=== PATIENT | male | born 1955 | race Caucasian/White ===

== ENCOUNTER 2021-08-31 09:01 | Outpatient (REF) | payer OTHER, SELFPAY ==
[2021-08-31 10:45] LABS: Alanine Aminotransferase 33 U/L (0-40); Albumin Level 4.4 g/dL (3.5-5.0); Alkaline Phosphatase 89 U/L (39-117); Anion Gap 12 (12-20); Aspartate Amino Transferase 28 U/L (5-37); Bilirubin Total 0.9 mg/dL (0.0-1.0); Blood Urea Nitrogen 17 mg/dL (9-16); Calcium 9.1 mg/dL (8.4-10.2); Carbon Dioxide 29 mmol/L (22-29); Chloride 104 mmol/L (96-108); Cholesterol 152 mg/dL; Estimated Glomerular Filt Rate > 60; Glucose Fasting 95 mg/dL (60-99); HDL Cholesterol 35 mg/dL; LDL Cholesterol Calculated 98 mg/dl; Potassium 4.8 mmol/L (3.3-5.1); Sodium 140 mmol/L (135-145); Triglycerides 98 mg/dL
[2021-09-07 14:16] LABS: Vitamin D 25-OH, D2 <4 ng/mL; Vitamin D 25-OH, D3 25 ng/mL; Vitamin D 25-OH, Total 25 ng/mL (30-100)
== END 2021-08-31 09:02 | disposition home or self-care (01) ==
LOC: HO.LAB 09:01
PROVIDERS: Visit Provider Internal Medicine
DX: E55.9 Vitamin D deficiency, unspecified (principal); E78.5 Hyperlipidemia, unspecified; I10 Essential (primary) hypertension
CPT/HCPCS: 36415; 80053; 80061; 82306

== ENCOUNTER 2022-10-23 14:59 | Outpatient (REF) | payer MEDICARE, MEDICAID, SELFPAY ==
[2022-10-23 15:44] LABS: COVID-19 Test Negative (Negative); IDNOW Serial# 16C4AD1C
== END 2022-10-23 15:00 | disposition home or self-care (01) ==
LOC: HO.LAB 14:59
PROVIDERS: Visit Provider Internal Medicine
DX: Z20.822 Contact with and (suspected) exposure to COVID-19 (principal)
CPT/HCPCS: 87635; C9803

== ENCOUNTER 2023-02-12 04:54 | Emergency (ER) | payer MEDICARE, MEDICAID, SELFPAY ==
--- NOTE | ~2023-02-12 | CT_ITS ---
EXAMINATION: CT ABDOMEN AND PELVIS WITHOUT CONTRAST CLINICAL INFORMATION: Question right spigelian hernia COMPARISON: None available. TECHNIQUE: Multidetector volumetric imaging was performed from the superior aspect of the liver through the pubic symphysis. Sagittal and coronal reformatted images were obtained on the technologist's workstation. This CT examination was performed using dose optimization techniques as appropriate, variously including the following: *Automated exposure control *Adjustment of mA and/or kV according to patient size (this includes techniques or standardized protocols for targeted exams where dose is matched to indication/reason for exam; i.e. extremities or head) *Use of iterative reconstruction technique DLP: 718 mGy-cm FINDINGS: LUNG BASES: Mild dependent opacities bilaterally more suggestive of atelectasis. LIVER, GALLBLADDER, AND BILIARY TREE: The liver is normal in size, shape, and attenuation. No focal hepatic lesion or biliary ductal dilatation is identified. The gallbladder is unremarkable with no evidence of radiopaque gallstones, gallbladder wall thickening, or obvious pericholecystic inflammatory changes. PANCREAS: Unremarkable. SPLEEN: Unremarkable. ADRENAL GLANDS: Unremarkable. KIDNEYS AND URETERS: No hydronephrosis or obstructing calculus bilaterally. Few bilateral renal cysts are noted measuring up to approximately 4.2 cm upper left kidney; no follow-up recommended. There is limited evaluation of the renal parenchyma without intravenous contrast. There is a questionable partially exophytic lesion in the lower right kidney such as on coronal image 73 laterally; further workup with renal ultrasound is recommended. BLADDER: Unremarkable. GASTROINTESTINAL TRACT: No evidence of bowel obstruction or significant wall thickening. The appendix is unremarkable. No free fluid or free air is seen. ABDOMINAL WALL: No significant hernia is appreciated. LYMPH NODES: Normal. VASCULAR: Scattered atherosclerotic calcifications. PELVIC VISCERA: Unremarkable. OSSEOUS STRUCTURES: Degenerative changes are noted in the spine. CT/CT abdomen pelvis wo IV con IMPRESSION: 1. No evidence of spigelian hernia. 2. Questionable partially exophytic lesion in the lower right kidney, for which further workup with renal ultrasound is recommended.
[2023-02-12 05:03] VITALS: BP 160/92; BP 164/89; PULSE 84; PULSE 91; RESP 16; TEMP 37; O2SAT 97; BMI 34.2
--- NOTE | 2023-02-12 05:04 | MHC.EDTECH ---
Patient reports Abdomainal pain Vitals are stable Alert and oriented Frisian speaking
[2023-02-12 05:07] VITALS: BP 164/89; PULSE 91; RESP 16; TEMP 37; O2SAT 98
--- NOTE | 2023-02-12 05:08 | PC.NURSE ---
pt change of over into hospital attire, pt reports abd pain, labs ordered, Will continue to monitor.
--- NOTE | 2023-02-12 05:08 | ED.ABDPAIN ---
HPI - Abdominal Pain General Chief Complaint: Abdominal Pain Stated Complaint: RLQ PAIN ON/OFF PER EMS Time Seen by Provider: 02/12/23 05:08 Source: patient Mode of arrival: ambulatory Limitations: no limitations History of Present Illness HPI narrative: Patient obese patient with history of laparotomy for perforated bowel was bending down and cutting his toenails today noticed pain in the right abdominal wall no nausea no vomiting no diarrhea by the time patient came here pain improved no history of hernia in the past Related Data Home Medications Medication Instructions Recorded Confirmed acetaminophen 650 mg 1 tab PO TID 09/12/20 12/27/22 tablet,extended release (Mapap Arthritis Pain) meclizine 25 mg tablet 1 tab PO DAILY PRN vertigo 09/12/20 12/27/22 aspirin 81 mg tablet,delayed 81 mg PO DAILY 09/19/20 12/27/22 release Previous Rx's Medication Instructions Recorded atorvastatin 80 mg tablet 80 mg PO BEDTIME 90 days #90 tabs 10/15/22 lisinopril 30 mg tablet 30 mg PO DAILY #90 tabs 10/15/22 atenolol 25 mg tablet 25 mg PO DAILY #90 tabs 02/08/23 ibuprofen 600 mg tablet 600 mg PO Q6H PRN fever or pain 02/12/23 #30 tabs Allergies Allergy/AdvReac Type Severity Reaction Status Date / Time No Known Allergies Allergy Verified 12/27/22 15:41 Review of Systems Review of Systems Yes all other systems are reviewed and are negative [facility] Past Medical History Medical History Class 1 obesity with body mass index (BMI) of 33.0 to 33.9 in adult Essential hypertension HTN (hypertension) Pulmonary embolism Pure hypercholesterolemia Vertigo Vertigo Surgical History Fistula History of prostatectomy Family History Family History Father No problems noted. Mother No problems noted. Social History Social History Housing: Apartment Alcohol intake: never Patient Tobacco Use Status: Never used Tobacco Smoked in Last 30 Days: No e-Cigarette/Vaping Use: Never Used Second Hand Smoke Exposure: No Use of substances other than those prescribed or required for medical reasons: No Advance Directives: No Advance Directives Information Provided: Yes service: No Current occupational status: disabled Cognitive needs: Yes Hearing needs: No Vision needs: Yes Physical Exam ED Vital Signs: Vital Signs - 24 hr 02/12/23 05:03 02/12/23 05:07 02/12/23 06:16 Temperature 98.6 F 98.6 F 98.2 F Pulse Rate 91 91 74 Respiratory Rate 16 16 17 Blood Pressure 164/89 H 164/89 H 132/67 Pulse Oximetry 97 98 94 Oxygen Delivery Method Room Air Room Air BMI result Body Mass Index 34.2 Appearance: Alert. Oriented X3. No acute distress. Eyes: No pallor in ENT: Pharynx normal. Oral Mucosa moist Neck: Normal inspection. Neck supple. CVS: Normal heart rate and rhythm. Pulses normal. Respiratory: No respiratory distress. Equal air entry bilateral, no wheezing/rales/rhonchi Abdomen: Soft slight tenderness right mid abdominal wall which increases on raising the leg without any lump palpable, Bowel sounds are present, no mass palpable, no CVA tenderness Skin: Skin warm and dry. Normal skin color. Normal skin turgor. Extremities: No lower extremity edema. No calf tenderness Neuro: Oriented X 3. No motor deficit. Medical Decision Making Medical Decision Making [facility] Narrative: Patient likely muscular strain of the abdominal wall CT scan negative for any hernia no palpable masses felt patient feeling much better at this time will discharge patient home Lab Data [facility] Lab Attestation statement: I reviewed the patient's lab results. 02/12/23 05:19 02/12/23 05:19 Labs: Lab Results 02/12/23 02/12/23 Range/Units 05:19 05:19 WBC 6.2 (4.8-10.8) X10*3/uL RBC 5.28 (4.60-5.80) X10*6/uL Hgb 14.0 (14.0-18.0) g/dl Hct 44.6 (42.0-52.0) % MCV 84.5 (80.0-98.0) fL MCH 26.5 L (27.0-33.0) pg MCHC 31.4 (31.0-36.0) g/dl RDW 14.1 (11.0-16.0) % Plt Count 235 (160-400) X10*3/uL MPV 9.6 (9.4-12.4) fL Absolute Nucleated RBC 0.000 (0.0-0.012) X10*3/uL Nucleated RBC % (auto) 0.0 (0.0-0.2) /100WBC Sodium 139 (135-145) mmol/L Potassium 4.7 (3.3-5.1) mmol/L Chloride 106 (96-108) mmol/L Carbon Dioxide 22 (22-29) mmol/L Anion Gap 16 (12-20) BUN 25 H (9-16) mg/dL Creatinine 1.20 (0.5-1.4) mg/dL Estim Creat Clear Calc 63.9 Estimated GFR > 60 Random Glucose 126 H (60-115) mg/dL Calcium 8.9 (8.4-10.2) mg/dL Total Bilirubin 0.9 (0.0-1.0) mg/dL AST 25 (5-37) U/L ALT 30 (0-40) U/L Alkaline Phosphatase 105 (39-117) U/L Total Protein 7.5 (6.5-8.0) g/dL Albumin 4.3 (3.5-5.0) g/dL Lipase 24 (8-78) U/L Discharge Plan Discharge Clinical Impression: Strain of abdominal muscle Patient Disposition: Home, Self-Care Instructions: Muscle Strain (DC) Additional Instructions: Apply ice pack, Motrin for the pain No hernia seen in the CT scan Follow your PCP if pain continues Prescriptions: New ibuprofen 600 mg tablet 600 mg PO Q6H PRN (Reason: fever or pain) Qty: 30 0RF No Action lisinopril 30 mg tablet 30 mg PO DAILY Qty: 90 1RF atorvastatin 80 mg tablet 80 mg PO BEDTIME 90 Days Qty: 90 1RF atenolol 25 mg tablet 25 mg PO DAILY Qty: 90 1RF acetaminophen [Mapap Arthritis Pain] 650 mg tablet extended release 1 tab PO TID meclizine 25 mg tablet 1 tab PO DAILY PRN (Reason: vertigo) aspirin 81 mg tablet,delayed release (DR/EC) 81 mg PO DAILY Print Language: Moroccan
[2023-02-12 05:23] LABS: Hematocrit 44.6 % (42.0-52.0); Mean Corpuscular HGB Conc 31.4 g/dl (31.0-36.0); Mean Corpuscular Hemoglobin 26.5 pg (27.0-33.0); Mean Corpuscular Volume 84.5 fL (80.0-98.0); Mean Platelet Volume 9.6 fL (9.4-12.4); Platelet Count 235 X10*3/uL (160-400); Red Blood Count 5.28 X10*6/uL (4.60-5.80); Red Cell Distribution Width 14.1 % (11.0-16.0); White Blood Count 6.2 X10*3/uL (4.8-10.8)
[2023-02-12 05:43] LABS: Alanine Aminotransferase 30 U/L (0-40); Albumin Level 4.3 g/dL (3.5-5.0); Alkaline Phosphatase 105 U/L (39-117); Anion Gap 16 (12-20); Aspartate Amino Transferase 25 U/L (5-37); Bilirubin Total 0.9 mg/dL (0.0-1.0); Blood Urea Nitrogen 25 mg/dL (9-16); Calcium 8.9 mg/dL (8.4-10.2); Carbon Dioxide 22 mmol/L (22-29); Chloride 106 mmol/L (96-108); Creatinine Clr Calc Pharmacy 63.9; Estimated Glomerular Filt Rate > 60; Glucose Random 126 mg/dL (60-115); Lipase 24 U/L (8-78); Potassium 4.7 mmol/L (3.3-5.1); Sodium 139 mmol/L (135-145); Total Protein 7.5 g/dL (6.5-8.0)
[2023-02-12 06:16] VITALS: BP 132/67; PULSE 74; RESP 17; TEMP 36.8; O2SAT 94
== END 2023-02-12 07:03 | disposition home or self-care (01) ==
PROVIDERS: Emergency Provider Internal Medicine; PCP Internal Medicine
DX: S39.011A Strain of muscle, fascia and tendon of abdomen, initial encounter (principal); X50.1XXA Overexertion from prolonged static or awkward postures, initial encounter; I10 Essential (primary) hypertension; E78.00 Pure hypercholesterolemia, unspecified; E66.9 Obesity, unspecified; Z68.34 Body mass index [BMI] 34.0-34.9, adult; Z86.711 Personal history of pulmonary embolism; Z79.82 Long term (current) use of aspirin; Z79.02 Long term (current) use of antithrombotics/antiplatelets; Z79.899 Other long term (current) drug therapy; Y93.E8 Activity, other personal hygiene; Y92.039 Unspecified place in apartment as the place of occurrence of the external cause; Y99.9 Unspecified external cause status
CPT/HCPCS: 36415; 74176; 80053; 83690; 85027; 99284

== ENCOUNTER 2023-05-14 07:46 | Outpatient (REF) | payer MEDICARE, MEDICAID, SELFPAY ==
[2023-05-14 09:15] LABS: Alanine Aminotransferase 21 U/L (0-40); Alkaline Phosphatase 107 U/L (39-117); Anion Gap 13 (12-20); Aspartate Amino Transferase 25 U/L (5-37); Bilirubin Total 0.8 mg/dL (0.0-1.0); Blood Urea Nitrogen 20 mg/dL (9-16); Calcium 8.8 mg/dL (8.4-10.2); Carbon Dioxide 27 mmol/L (22-29); Chloride 105 mmol/L (96-108); Cholesterol 156 mg/dL; Estimated Glomerular Filt Rate > 60; Glucose Fasting 112 mg/dL (60-99); HDL Cholesterol 34 mg/dL; LDL Cholesterol Calculated 95 mg/dl; Potassium 3.9 mmol/L (3.3-5.1); Sodium 141 mmol/L (135-145); Total Protein 7.4 g/dL (6.5-8.0); Triglycerides 138 mg/dL
== END 2023-05-14 07:47 | disposition home or self-care (01) ==
LOC: HO.LAB 07:46
PROVIDERS: PCP Internal Medicine; Visit Provider Internal Medicine
DX: I10 Essential (primary) hypertension (principal); E78.5 Hyperlipidemia, unspecified
CPT/HCPCS: 36415; 80053; 80061

== ENCOUNTER 2023-05-16 11:47 | Outpatient (AMB) | payer MEDICARE, MEDICAID, SELFPAY ==
--- NOTE | 2023-05-16 12:34 | A.OFFPC_ITS ---
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 Accompanied by: Self / Same As Patient Allergies No Known Allergies Allergy (Verified 05/16/23 12:46) Medication List - Last Reconciled 05/16/23 by Jamilah Forde MD acetaminophen ER (Mapap Arthritis Pain) 1 tab PO TID aspirin 81 mg PO DAILY atenolol 25 mg PO DAILY atorvastatin 80 mg PO BEDTIME 90 days ibuprofen 600 mg PO Q6H PRN lisinopril 30 mg PO DAILY meclizine 1 tab PO DAILY PRN Tobacco use date assessed: 12/27/22 Fall risk assessment: No Falls in past year Last assessed Fall Risk: 05/16/23 Dental Screening Dental Screen Date: 05/16/23 Did you have a dental visit in the last 12 months?: Yes Did you have a dental problem in the last 6 months where you did not have access to dental care?: No Was dental information given to patient?: Patient has dentist HPI HPI Comments History of Present Illness Details This is a 68-year-old male that comes for his physical exam. Last colonoscopy was at 60 years old at [facility] and was normal. No chest pain or shortness of breath. [facility] Medical History Class 1 obesity with body mass index (BMI) of 33.0 to 33.9 in adult Essential hypertension HTN (hypertension) Pulmonary embolism Pure hypercholesterolemia Vertigo Vertigo Surgical History (Updated 05/16/23 @ 12:50 by Jamilah Forde MD) Fistula History of colonoscopy History of prostatectomy Family History Father No problems noted. Mother No problems noted. Social History Housing: Apartment Alcohol intake: never Patient Tobacco Use Status: Never used Tobacco e-Cigarette/Vaping Use: Never Used Second Hand Smoke Exposure: No service: No Current occupational status: disabled Cognitive needs: Yes Hearing needs: No Vision needs: Yes Questionnaire Thrive Questionnaire Date Thrive assessed: 12/27/22 MARYAM-7 AMB Questionnaire MARYAM-7 Date MARYAM - 7 assessed: 12/27/22 Source: Developed by Drs. Red Rosales, Elisha Santillan, Broderick De Santiago and colleagues, with an educational jamar from [employer]. Review of Systems Const All systems reviewed & are unremarkable except as noted in HPI and below Eyes Reports no additional complaints, Denies change in vision and Denies other visual disturbances Card Denies chest pain at rest, Denies chest pain with activity, Denies edema, Denies irregular heart rhythm, Denies claudication, Denies dyspnea, Denies dyspnea on exertion, Denies orthopnea, Denies paroxysmal nocturnal dyspnea and Denies slow heart rate Resp Denies cough, Denies dyspnea and Denies dyspnea on exertion GI Denies abdominal pain, Denies change in bowel habits, Denies excessive flatus, Denies nausea and Denies vomiting Denies urinary hesitancy, Denies urinary incontinence and Denies urinary urgency Musc Denies abnormal gait, Denies atrophy, Denies deformity and Denies limited range of motion Skin/Breast Denies bleeding lesions, Denies changing lesions and Denies rash Neuro Denies abnormal gait and Denies lack of coordination Physical exam (Primary Care) Vital Signs: Last Vital Signs BP 126/82 05/16/23 12:35 BMI result Body Mass Index 34.7 Tobacco/Smoking Status: Tobacco use Status Tobacco use date assessed 12/27/22 05/16/23 12:41 Patient Tobacco Use Status Never used Tobacco 05/16/23 12:41 e-Cigarette/Vaping Use Never Used 05/16/23 12:41 Thrive Assessment: Date of Thrive Assessment Date Thrive assessed 12/27/22 05/16/23 12:41 Const Orientation/consciousness: patient oriented x3 HENMT Head: Yes normal to inspection, Yes normocephalic and Yes atraumatic Ears: external ears normal Eyes General: appearance normal, both eyes and all related structures Eyelids: Yes eyelids normal Conjunctivae: conjunctivae normal Neck Neck: Yes normal visual inspection and Yes supple Resp Effort & Inspection: normal respiratory effort Auscultation: clear to auscultation bilaterally Cardio Jugular venous distension: no JVD Rate: regular rate Rhythm: regular rhythm Heart sounds: S1 normal heart sound present and S2 normal heart sound present GI Inspection: Yes normal to inspection Palpation (GI): Soft to palpation and nontender Auscultation: normal bowel sounds Skin General skin exam: no rashes or lesions noted Neuro General: patient oriented x3 and no focal motor deficits Extrem General: Yes full ROM Psych Appearance: grossly normal Assessment and Plan Assessment & Plan (1) Physical exam: Code(s): Z00.00 - Encounter for general adult medical examination without abnormal findings Plan: Repeat in a year Coding Level of Care Code Est Pt Prev Care >65y(39642) Diagnoses Physical exam Z00.00 Time Spent (min) 30
[2023-05-16 12:35] VITALS: BP 126/82; BMI 34.7
== END 2023-05-16 12:54 | disposition home or self-care (01) ==
PROVIDERS: Visit Provider Internal Medicine
DX: Z00.00 Encounter for general adult medical examination without abnormal findings (principal)
CPT/HCPCS: 99397

== ENCOUNTER → 2024-06-23 14:43 | Outpatient (RCR) | payer MEDICARE, MEDICAID, SELFPAY ==
[2020-09-12 12:04] LABS: MANUAL DIFF FLAG NO
[2020-09-12 12:05] LABS: Basophils Percent Auto 0.6 % (0-2); Eosinophils Absolute Auto 0.2 X10*3/uL (0.0-0.4); Eosinophils Percent Auto 3.7 % (0-4); Hematocrit 47.3 % (42-52); Hemoglobin 14.4 g/dl (14.0-18.0); Imm Gran Abs Auto 0.01 X10*3/uL (0.00-0.03); Imm Gran Pct Auto 0.2 % (0.0-0.4); Lymphocytes Absolute Auto 2.2 X10*3/uL (1.2-4.9); Lymphocytes Percent Auto 34.8 % (20-40); Mean Corpuscular HGB Conc 30.4 g/dl (31.0-36.0); Mean Corpuscular Hemoglobin 25.8 pg (27.0-33.0); Mean Corpuscular Volume 84.6 fL (80-98); Mean Platelet Volume 9.7 fL (9.4-12.4); Monocytes Absolute Auto 0.5 X10*3/uL (0.1-1.2); Monocytes Percent Auto 7.6 % (2-11); Neutrophils Absolute Auto 3.3 X10*3/uL (2.0-8.3); Neutrophils Percent Auto 53.1 % (45-73); Platelet Count 275 X10*3/uL (160-400); Red Blood Count 5.59 X10*6/uL (4.60-5.80); Red Cell Distribution Width 14.3 % (11.0-16.0); White Blood Count 6.2 X10*3/uL (4.8-10.8)
[2020-09-12 12:13] LABS: D Dimer 598 NG/ML
[2020-09-12 12:21] VITALS: BP 134/77; PULSE 74; RESP 12; TEMP 36.9; O2SAT 98; BMI 31.5
[2020-09-12 12:33] LABS: Alanine Aminotransferase 23 U/L (0-40); Albumin Level 4.4 g/dL (3.5-5.0); Alkaline Phosphatase 90 U/L (39-117); Anion Gap 12 (12-20); Aspartate Amino Transferase 20 U/L (5-37); Bilirubin Total 0.6 mg/dL (0.0-1.0); Blood Urea Nitrogen 19 mg/dL (9-16); Carbon Dioxide 30 mmol/L (22-29); Chloride 100 mmol/L (96-108); Creatinine Clr Calc Pharmacy 76.3; Estimated Glomerular Filt Rate > 60; Glucose Random 98 mg/dL (60-115); Potassium 4.6 mmol/l (3.3-5.1); Sodium 137 mmol/L (135-145); Total Protein 7.5 g/dL (6.5-8.0)
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
== END | disposition home or self-care (01) ==
LOC: HO.ONC 09-12 11:45
PROVIDERS: PCP Internal Medicine; Visit Provider Internal Medicine Medical Oncology
DX: Z86.711 Personal history of pulmonary embolism (principal)
CPT/HCPCS: 36415; 80053; 85025; 85379; 99214